=== PATIENT | female | born 1980 | race Caucasian/White ===

== ENCOUNTER 2017-09-26 12:51 | Emergency (ER) | payer BC ==
[~2017-09-26] VITALS: Ht 165.1 cm; Wt 56.7 kg
[2017-09-26] MEDS ORDERED: ALBUTEROL SULFATE 2.5 MG/3 ML NEBU NEB ONE (13:30)
[2017-09-26] MEDS ORDERED: ALBUTEROL SULFATE 2.5 MG/3 ML NEBU ONE (13:43)
--- NOTE | 2017-09-26 14:55 | NUR ---
DR KEITA AT BEDSIDE MADE PATIENT AWARE OF TEST RESULT WILL BE DISCHARGE HOME.
--- NOTE | 2017-09-26 15:03 | NUR ---
Patient discharged to home in stable conditon. Written and verbal after care instructions given. Patient verbalizes understanding of instructions.
[2017-09-26 15:05] VITALS: BP 144/75
== END 2017-09-26 15:11 | disposition home or self-care (01) ==
LOC: ER 12:53
DX: J20.9 Acute bronchitis, unspecified (principal); Z88.0 Allergy status to penicillin
CPT/HCPCS: 71045; A4663